=== PATIENT | female | born 1965 | race American Indian/Alaskan Native ===

== ENCOUNTER 2020-04-21 08:26 | Outpatient (CLI) | payer OTHER | END 2020-04-21 08:27 | disposition home or self-care (01) | LOC: SPVWC 08:26 → MAMMO 08:26 → SPVWC 08:27 | PROVIDERS: ATTEND Internal Medicine | DX: Z12.31 Encounter for screening mammogram for malignant neoplasm of breast (principal) | CPT/HCPCS: 77067 ==